=== PATIENT | male | born 1955 | race Caucasian/White ===

== ENCOUNTER → 2017-12-20 | Outpatient (CLI) | payer MEDICARE, OTHER ==
[~2017-12-20] MED LIST: ALBUTEROL2.5 MG/3 M INH; ALLFEN400 MG PO; AZITHROMYCIN 2250 MG PO; BIAXIN500 MG PO; DUONEB 2.5-0.5 M3 ML INH; LEVAQUIN 500 M500 M2 PO; MUCINEX TA600 MG/TA1 PO; PREDNISONE 10 M10 MG PO; PROBIOTIC1 EAC1 PO; PROMETHAZINE/C118 ML PO; PROTONIX40 M2 PO; PROVENTIL HFA6.7 G1 INH; SINGULAIR 10 MG10 M1 PO; SYMBICORT160 MCG/4. INH; TESSALON PERLE100 MG PO
== END ==
LOC: M.RAD 14:23
DX: J98.11 Atelectasis (principal); I70.0 Atherosclerosis of aorta; J06.9 Acute upper respiratory infection, unspecified; J84.10 Pulmonary fibrosis, unspecified; Z79.899 Other long term (current) drug therapy

== ENCOUNTER → 2019-01-29 | Outpatient (CLI) | payer MEDICARE, OTHER ==
--- NOTE | 2019-02-11 08:10 | PF ---
[address] [address] PULMONARY FUNCTION REPORT Name: DIANAJINA VOEUGENIO Room: [facility] Zeke#: [id number] Admission: 01/29/19 Attend Phys: Benitez Wan MD Discharge: Date of : 51 Report #: [id number] THIS REPORT FOR: //name// CC: Benitez MISTRY A spiromgram shows normal forced vital capacity. Normal FEV1. However, ratio was 68% of predicted. His mid flow rate was decreased to 50%. Unfortunately bronchodilator challenge was not done. There was a delayed plateauing suggestive of obstructive lung disease. IMPRESSION: Mild obstructive lung disease as reflected by decreased mid flow rate suggestive of peripheral airway disease as well as decreased FEV1 to FVC ratio. Clinical correlation is indicated. <ELECTRONICALLY SIGNED> By: Benitez Wan MD 02/11/19 0810 [id number] Olu Barton MD /nt
== END ==
LOC: M.PUL 11:00
DX: Z48.813 Encounter for surgical aftercare following surgery on the respiratory system (principal); J84.112 Idiopathic pulmonary fibrosis; R09.02 Hypoxemia; K21.9 Gastro-esophageal reflux disease without esophagitis; E66.9 Obesity, unspecified; E11.9 Type 2 diabetes mellitus without complications; E78.5 Hyperlipidemia, unspecified; Z94.2 Lung transplant status; Z90.49 Acquired absence of other specified parts of digestive tract; Z72.89 Other problems related to lifestyle; Z79.82 Long term (current) use of aspirin; Z79.899 Other long term (current) drug therapy

== ENCOUNTER → 2021-03-15 | Outpatient (CLI) | payer MEDICARE ==
--- NOTE | 2021-03-17 13:51 | PF ---
[address] [address] PULMONARY FUNCTION REPORT Name: JINA ORTIZ Room: KARYN TannerFernandoDangeloFernando#: [id number] Admission: 03/15/21 Attend Phys: DAVID MISTRY MD Discharge: Date of : 51 Report #: [id number] THIS REPORT FOR: cc: Migel Casiano MD, David L. MD Pervez, Adeel MD ~ DATE OF VISIT: 03/15/2021 The FEV1/FVC ratio is decreased to 64% with an FVC normal at 83%. The PULMONARY FUNCTION TEST FEV1 is decreased to 71%. The [id number] is decreased to 52%. Only a spirometry was performed. The flow volume loop is concave upwards. Reversibility is not available. IMPRESSION: Spirometry is consistent with moderate obstruction. Full pulmonary function test and reversibility can be considered if further evaluation is clinically indicated. <ELECTRONICALLY SIGNED> By: Glynn Willis MD 03/17/21 1351 [id number] [id number] Willis MD /nt
== END ==
LOC: M.PUL 11:00
PROVIDERS: ATTEND Internal Medicine Pulmonary Disease
DX: Z48.24 Encounter for aftercare following lung transplant (principal)